=== PATIENT | female | born 1990 ===

== ENCOUNTER → 2020-04-28 | Outpatient (CLI) | payer OTHER | END | disposition home or self-care (01) | LOC: PRENATAL 13:00 | PROVIDERS: ATTEND Obstetrics & Gynecology Maternal & Fetal Medicine | DX: O35.0XX1 Maternal care for (suspected) central nervous system malformation in fetus, fetus 1 (principal); O35.3XX1 Maternal care for (suspected) damage to fetus from viral disease in mother, fetus 1; O98.512 Other viral diseases complicating pregnancy, second trimester; O28.1 Abnormal biochemical finding on antenatal screening of mother; Z36.89 Encounter for other specified antenatal screening; Z3A.18 18 weeks gestation of pregnancy ==

== ENCOUNTER 2020-09-13 21:23 | Outpatient (CLI) | payer OTHER ==
[2020-09-13] MEDS ORDERED: PRENATAL TABLE1 EAC1 PO (21:33)
== END 2020-09-14 00:20 | disposition home or self-care (01) ==
LOC: OBS/DEL 21:23
PROVIDERS: ATTEND Obstetrics & Gynecology
DX: O47.1 False labor at or after 37 completed weeks of gestation (principal)

== ENCOUNTER 2020-09-29 17:21 | Inpatient (IN) | payer OTHER ==
[~2020-09-29] VITALS: Ht 165.1 cm; Wt 3.2 kg
[~2020-09-29 17:21] MED LIST: PRENATAL TABLE1 EAC1 PO
[2020-10-03] MEDS ORDERED: Tylenol #3 PO (11:15)
== END 2020-10-03 12:10 | disposition home or self-care (01) | DRG 788 ==
LOC: LDR 17:21 → O/R 09-30 19:27 → SURG-SUITE 09-30 20:05
PROVIDERS: ADMIT Obstetrics & Gynecology; ATTEND Obstetrics & Gynecology
PROC: 3E0D7GC Introduction of Other Therapeutic Substance into Mouth and Pharynx, Via Natural or Artificial Opening (ICD-10-PCS; 2020-09-29)
PROC: 4A1HXFZ Monitoring of Products of Conception, Cardiac Rhythm, External Approach (ICD-10-PCS; 2020-09-29)
PROC: 3E033VJ Introduction of Other Hormone into Peripheral Vein, Percutaneous Approach (ICD-10-PCS; 2020-09-30)
PROC: 10907ZC Drainage of Amniotic Fluid, Therapeutic from Products of Conception, Via Natural or Artificial Opening (ICD-10-PCS; 2020-09-30)
PROC: 10D00Z1 Extraction of Products of Conception, Low, Open Approach (ICD-10-PCS; principal; 2020-09-30 18:00)
DX: O62.1 Secondary uterine inertia (principal); O61.0 Failed medical induction of labor; Z3A.40 40 weeks gestation of pregnancy; Z37.0 Single live birth